=== PATIENT | female | born 1950 | race Caucasian/White ===

== ENCOUNTER 2023-04-01 16:37 | Inpatient (IN) | payer MEDICARE, MEDICAID ==
[~2023-04-01] VITALS: Ht 165.1 cm; Wt 43.1 kg
[2023-04-01] MEDS ORDERED: ABILIFY MAINTE400 MG IM (17:01)
[2023-04-01] MEDS ORDERED: Synthroid,Levo75 MCG PO (17:02)
[2023-04-01] MEDS ORDERED: SEROQUEL300 MG PO (17:05)
[2023-04-01] MEDS ORDERED: SEROQUEL200 MG PO (17:05)
[2023-04-01 21:18] VITALS: BP 129/64
[2023-04-02 06:48] LABS: BASO % 0.6 % (0.0-1.0); EOS # 0.1 10*3/uL (0.0-0.4); EOS % 1.6 % (1.0-4.0); HEMATOCRIT 40.3 % (37.0-47.0); LYMPH # 2.7 10*3/uL (1.3-4.4); LYMPH % 39.8 % (27.0-41.0); MEAN CELL VOLUME 99.3 fl (81.0-99.0); MEAN CORPUSCULAR HGB 33.5 pg (27.0-31.0); MEAN CORPUSCULAR HGB CONC 33.7 g/dl (33.0-37.0); MEAN PLATELET VOLUME 8.1 fl (9.6-12.3); MONO # 0.7 10*3/uL (0.1-1.0); MONO % 10.8 % (3.0-9.0); NEUT # 3.2 10*3/uL (2.3-7.9); NEUT % 47.1 % (47.0-73.0); PLATELET COUNT AUTOMATED 309 10*3/uL (130-400); RED BLOOD COUNT 4.06 10*6/uL (4.10-5.10); RED CELL DISTRI WIDTH 13.7 % (0-14.5); WHITE BLOOD COUNT 6.8 10*3/uL (4.8-10.8)
[2023-04-02 07:19] LABS: ALKALINE PHOSPHATASE 60 U/L (46-116); BUN 17 mg/dl (9-23); CHLORIDE 108 mmol/L (98-107); CHOLESTEROL 172 mg/dL (<200); LDL CHOLESTEROL 101 mg/dL (9-159); POTASSIUM 3.6 mmol/L (3.4-5.1); SGPT/ALT 15 U/L (10-49); THYROID STIM HORMONE (HS) 2.046 uIU/ml (0.550-4.780); TOTAL PROTEIN 6.6 gm/dL (6.0-8.0); TRIGLYCERIDES 99 mg/dl (<150)
[2023-04-02 07:30] VITALS: BP 98/40
[2023-04-02 07:37] LABS: VITAMIN D, 25-HYDROXY 51.5 ng/mL (30-100)
[2023-04-02 13:50] VITALS: BP 105/52
[2023-04-02 20:00] VITALS: BP 111/54
[2023-04-03 07:32] VITALS: BP 110/56
[2023-04-03 14:00] VITALS: BP 110/56
[2023-04-03 20:00] VITALS: BP 98/68
[2023-04-04 07:57] VITALS: BP 100/61
[2023-04-04 20:00] VITALS: BP 110/56
[2023-04-05 08:11] VITALS: BP 90/46
[2023-04-05 20:28] VITALS: BP 95/59
[2023-04-06 07:46] VITALS: BP 112/52
[2023-04-06 19:35] VITALS: BP 95/52
[2023-04-07 08:04] VITALS: BP 108/55
[2023-04-07 20:00] VITALS: BP 109/54
[2023-04-08 07:29] VITALS: BP 98/61
[2023-04-08 20:00] VITALS: BP 104/58
[2023-04-09 08:00] VITALS: BP 95/66
[2023-04-09 20:00] VITALS: BP 106/52
[2023-04-10 08:00] VITALS: BP 116/55
[2023-04-10] MEDS ORDERED: MIRTAZAPINE15 M2 PO (09:27)
[2023-04-10] MEDS ORDERED: QUETIAPINE FUM400 M1 PO (09:27)
[2023-04-10] MEDS ORDERED: INVEGA SUSTENN156 MG IM (09:27)
== END 2023-04-10 16:00 | disposition home or self-care (01) | DRG 885 ==
LOC: 3N 16:37
PROVIDERS: Counselor Professional; ADMIT Psychiatry & Neurology Psychiatry; ATTEND Psychiatry & Neurology Psychiatry
PROC: 0HBRXZZ Excision of Toe Nail, External Approach (ICD-10-PCS; principal; 2023-04-03)
PROC: 0HBRXZZ Excision of Toe Nail, External Approach (ICD-10-PCS; 2023-04-03)
PROC: 0HBRXZZ Excision of Toe Nail, External Approach (ICD-10-PCS; 2023-04-03)
PROC: 0HBRXZZ Excision of Toe Nail, External Approach (ICD-10-PCS; 2023-04-03)
PROC: 0HBRXZZ Excision of Toe Nail, External Approach (ICD-10-PCS; 2023-04-03)
PROC: 0HBRXZZ Excision of Toe Nail, External Approach (ICD-10-PCS; 2023-04-03)
PROC: 0HBRXZZ Excision of Toe Nail, External Approach (ICD-10-PCS; 2023-04-03)
PROC: 0HBRXZZ Excision of Toe Nail, External Approach (ICD-10-PCS; 2023-04-03)
PROC: 0HBRXZZ Excision of Toe Nail, External Approach (ICD-10-PCS; 2023-04-03)
PROC: 0HBRXZZ Excision of Toe Nail, External Approach (ICD-10-PCS; 2023-04-03)
DX: F25.9 Schizoaffective disorder, unspecified (principal); N39.0 Urinary tract infection, site not specified; F17.210 Nicotine dependence, cigarettes, uncomplicated; B35.1 Tinea unguium; J44.9 Chronic obstructive pulmonary disease, unspecified; E03.9 Hypothyroidism, unspecified; Z90.710 Acquired absence of both cervix and uterus; Z90.49 Acquired absence of other specified parts of digestive tract; Z71.6 Tobacco abuse counseling; Z87.81 Personal history of (healed) traumatic fracture